=== PATIENT | male | born 1950 | race Caucasian/White ===

== ENCOUNTER → 2017-03-08 | Outpatient (CLI) | payer OTHER ==
[~2017-03-08] MED LIST: IOPAMIDOL (ISOVUE-300) 100 ML BTL ONE
== END ==
LOC: FIMAGING 07:31
PROVIDERS: ATTEND Internal Medicine
DX: R91.1 Solitary pulmonary nodule (principal); I31.3 Pericardial effusion (noninflammatory); I25.10 Atherosclerotic heart disease of native coronary artery without angina pectoris
CPT/HCPCS: Q9967

== ENCOUNTER → 2017-03-21 | Outpatient (CLI) | payer OTHER ==
[~2017-03-21] MED LIST changes: -IOPAMIDOL (ISOVUE-300) 100 ML BTL ONE; +LIDO/EPI 1% **Not for Epidural 20 ML MDV ONE; +LIDO/EPI 1% **for epidural** 30 ML SDV ONE; +LIDOCAINE 1% 300 MG/30 ML SDV ONE
== END ==
LOC: FIMAGING 12:09
PROVIDERS: ATTEND Internal Medicine Hematology & Oncology
PROC: 0JB83ZX Excision of Abdomen Subcutaneous Tissue and Fascia, Percutaneous Approach, Diagnostic (ICD-10-PCS; principal; 2017-03-21)
DX: E65 Localized adiposity (principal)

== ENCOUNTER → 2017-06-03 | Outpatient (CLI) | payer OTHER | LOC: FIMAGING 16:25 | PROVIDERS: ATTEND Internal Medicine Hematology & Oncology | DX: M79.89 Other specified soft tissue disorders (principal) ==

== ENCOUNTER 2018-01-15 21:04 | Observation (INO) | payer OTHER, MEDICARE ==
[2018-01-15] MEDS ORDERED: NS 1,000 ML IV ONE ×2 (21:28→23:52)
--- NOTE | 2018-01-15 21:39 | CPEKG ---
Heart Rate: 47 RR Interval: 1277 P-R Interval: 170 QRSD Interval: 104 QT Interval: 516 QTC Interval: 457 P [place]: -20 QRS [place]: 11 T Wave [place]: 0 EKG Severity - ABNORMAL ECG - EKG Impression: SINUS BRADYCARDIA EKG Impression: MULTIPLE ATRIAL PREMATURE COMPLEXES Electronically Signed By: Steven Jay 15-Jan-2018 22:20:46
--- NOTE | 2018-01-15 21:53 | EDPHY ---
H & P Stated Complaint: ongoing low bp, several falls, vomiting just lighter captain Time Seen by Provider: 01/15/18 21:27 HPI/ROS: CHIEF COMPLAINT: Vasovagal syncope HISTORY OF PRESENT ILLNESS: The patient presents the ED with complaints of vasovagal syncope. The patient has a history of amyloidosis. 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 The patient reportedly has had symptoms of orthostasis since his bone marrow transplant. He reports he is typically able to manage the symptoms at home however over the past day has been unable to get his blood pressure over 80. The patient has sustained multiple falls which have resulted in some superficial abrasions. He denies significant headache, bony pain or additional traumatic complaints. The patient reports he did have an extensive cardiac workup in the past for hypotension. The patient is currently not taking any medications for blood pressure control. He recently stopped taking his Flomax secondary to his hypotension. The patient did have 1 episode of vomiting earlier today. He has been struggling with chronic nausea and vomiting following his bone marrow transplant. REVIEW OF SYSTEMS: A comprehensive 10 point review of systems is otherwise negative aside from elements mentioned in the history of present illness. Source: Patient Exam Limitations: No limitations - Medical/Surgical History Hx Asthma: No Hx Chronic Respiratory Disease: No Hx Diabetes: No Hx Cardiac Disease: Yes Hx Renal Disease: No Hx Cirrhosis: No Hx Alcoholism: No Hx HIV/AIDS: No Hx Splenectomy or Spleen Trauma: No Other PMH: afib, gerd, amyloidosis, bone marrow trans, appendectomy, cyst removed from coccyx - Social History Smoking Status: Never smoked - Physical Exam Exam: General Appearance: Alert, no distress Eyes: Pupils equal and round no pallor or injection ENT, Mouth: Mucous membranes moist Respiratory: There are no retractions, lungs are clear to auscultation Cardiovascular: Regular rate and rhythm Gastrointestinal: Abdomen is soft and nontender, no masses, bowel sounds normal Neurological: 5/5 strength all 4 extremities Skin: Warm and dry, no rashes Musculoskeletal: Neck is supple nontender Extremities: symmetrical, full range of motion Constitutional: Initial Vital Signs Temperature (C) 37 C 01/15/18 21:17 Heart Rate 54 L 01/15/18 21:17 Respiratory Rate 16 01/15/18 21:17 Blood Pressure 82/46 L 01/15/18 21:17 O2 Sat (%) 97 01/15/18 21:17 O2 Delivery Mode Room Air Allergies/Adverse Reactions: No Known Allergies Allergy (Unverified 01/15/18 21:23) Home Medications: Medication Instructions Recorded Acyclovir 01/15/18 Amiodarone HCl 01/15/18 Eliquis 01/15/18 Gabapentin 01/15/18 Granisetron 01/15/18 Lorazepam 01/15/18 Midodrine HCl 01/15/18 Potassium Chloride 01/15/18 Protonix 01/15/18 oxyCODONE CR 01/15/18 Medical Decision Making - Diagnostics EKG Interpretation: EKG: Complete interpretation has been separately recorded in the [facility] archive. Summary impression: Sinus bradycardia, rate 47, multiple PACs Imaging Results: Imaging Impressions Chest X-Ray 01/15/18 22:05 Impression: 1. Impending/borderline CHF. 2. Difficult to exclude left lower lobe infiltrate. A routine PA and lateral chest would be helpful. Procedures: Procedure: Limited transthoracic echocardiogram. A limited transthoracic echocardiogram was performed and interpreted by myself for hypotension. Limited transthoracic echocardiogram: The pericardium was visualized and found to be negative for pericardial fluid. Cardiac activity was present. The study was negative for pericardial effusion. ED Course/Re-evaluation: The patient was placed on a campus monitor. He had an IV established. He received 2 L of normal saline. The patient has sinus bradycardia. He has associated hypotension. He has no fever or significant traumatic complaints. The patient has no evidence of critical anemia. He is not on rate control agents. The patient will be admitted to the hospital for observation. Consultation was made with the hospitalist service at 10:00 p.m.. The patient will be admitted to a monitored bed this evening. Bedside ED ultrasound demonstrates no evidence of a pericardial effusion. Differential Diagnosis: Differential diagnosis considered includes critical anemia, arrhythmia, metabolic abnormality, cardiomyopathy - Data Points Laboratory Results: Laboratory Results 01/15/18 21:40 01/15/18 21:40 01/15/18 01/15/18 21:40 21:40 WBC 7.62 10^3/uL 10^3/uL (3.80-9.50) RBC 3.25 10^6/uL L 10^6/uL (4.40-6.38) Hgb 9.6 g/dL L g/dL (13.7-17.5) Hct 29.1 % L % (40.0-51.0) MCV 89.5 fL fL (81.5-99.8) MCH 29.5 pg pg (27.9-34.1) MCHC 33.0 g/dL g/dL (32.4-36.7) RDW 23.0 % H % (11.5-15.2) Plt Count 109 10^3/uL L 10^3/uL (150-400) MPV 10.6 fL fL (8.7-11.7) Neut % (Auto) 69.7 % % (39.3-74.2) Lymph % (Auto) 14.6 % L % (15.0-45.0) [place] % (Auto) 7.6 % % (4.5-13.0) Eos % (Auto) 7.0 % % (0.6-7.6) Baso % (Auto) 0.4 % % (0.3-1.7) Nucleat RBC Rel Count 0.0 % % (0.0-0.2) Absolute Neuts (auto) 5.32 10^3/uL 10^3/uL (1.70-6.50) Absolute Lymphs (auto) 1.11 10^3/uL 10^3/uL (1.00-3.00) Absolute Monos (auto) 0.58 10^3/uL 10^3/uL (0.30-0.80) Absolute Eos (auto) 0.53 10^3/uL H 10^3/uL (0.03-0.40) Absolute Basos (auto) 0.03 10^3/uL 10^3/uL (0.02-0.10) Absolute Nucleated RBC 0.00 10^3/uL 10^3/uL (0-0.01) Immature Gran % 0.7 % % (0.0-1.1) Immature Gran # 0.05 10^3/uL 10^3/uL (0.00-0.10) Platelet Estimate Pending Sodium 132 mEq/L L mEq/L (135-145) Potassium 4.6 mEq/L mEq/L (3.5-5.2) Chloride 101 mEq/L mEq/L (97-110) Carbon Dioxide 28 mEq/l mEq/l (22-31) Anion Gap 3 mEq/L L mEq/L (8-16) BUN 19 mg/dL mg/dL (7-23) Creatinine 1.5 mg/dL H mg/dL (0.7-1.3) Estimated GFR 47 Glucose 94 mg/dL mg/dL (70-100) Calcium 8.3 mg/dL L mg/dL (8.5-10.4) Medications Given: Discontinued Medications Sodium Chloride (Ns) 1,000 mls @ 0 mls/hr IV EDNOW ONE; Wide Open PRN Reason: Protocol Stop: 01/15/18 21:29 Last Admin: 01/15/18 21:40 Dose: 1,000 mls Departure - Departure Disposition: [facility] Inpatient Acute Clinical Impression: Vasovagal episode, Bradycardia Condition: Fair
[2018-01-15 21:57] LABS: PLATELET COUNT 109 10^3/uL (150-400)
[2018-01-15] MEDS ORDERED: ACETAMINOPHEN 325 MG TAB PO PRN (22:29)
[2018-01-15] MEDS ORDERED: HYDROCODONE/APAP 5/325 TAB PO PRN (22:29)
[2018-01-15] MEDS ORDERED: ONDANSETRON 4 MG/2 ML VIAL IVP PRN (22:29)
[2018-01-15] MEDS ORDERED: NS 1,000 ML IV SCH (22:30)
--- NOTE | 2018-01-16 04:26 | PDGENHP ---
History and Physical - Chief Complaint Syncope - History of Present Illness Source- patient provides history and appears reliable. His is at bedside supplements details. HPI - this is a very pleasant 67-year-old gentleman with past medical history significant for sarcoid who recently underwent a bone marrow transplant on approximately [address] [facility]. Patient reports that since that time he has had underlying nausea which discussed recently has improved in the last few days. Patient reports that he has been able to tolerate oral hydration but he thinks he may have fallen behind on intake in the 2nd half the day. He noted that his urine was kind of dark. Patient was measuring his blood pressure at home but was unable to get them above 80s systolic. Patient is taking mid to drain three times daily as he has had trouble with blood pressure since his transplant. Patient does have history of vasovagal syncope on previously on where he will full and have lost consciousness just for few seconds. Patient reports some intermittent rhinorrhea with clear drainage but no fevers or chills. Patient with the lower extremity edema which patient reports to be "the new normal." At any calf tenderness. No shortness of breath, no cough, no chest pain. History Information - Allergies/Home Medication List Allergies/Adverse Reactions: No Known Allergies Allergy (Unverified 01/15/18 21:23) Home Medications: Acyclovir 01/15/18 [Last Taken Unknown] Amiodarone HCl 01/15/18 [Last Taken Unknown] Eliquis 01/15/18 [Last Taken Unknown] Gabapentin 01/15/18 [Last Taken Unknown] Granisetron 01/15/18 [Last Taken Unknown] Lorazepam 01/15/18 [Last Taken Unknown] Midodrine HCl 01/15/18 [Last Taken Unknown] Potassium Chloride 01/15/18 [Last Taken Unknown] Protonix 01/15/18 [Last Taken Unknown] oxyCODONE CR 01/15/18 [Last Taken Unknown] I have personally reviewed and updated: family history, medical history, social history, surgical history - Past Medical History Additional medical history: Sarcoid status post bone marrow transplant, chronic anticoagulation with Eliquis for history of paroxysmal atrial fibrillation, BPH. Patient without any previous history of DVT - Surgical History Additional surgical history: Bone marrow transplant, appendectomy, cyst resection on his coccyx - Family History Additional family history: Mother with history of Parkinson's - Social History Smoking Status: Never smoked Alcohol Use: None Drug Use: None Additional social history: Patient is lives with his . Cor status- full Review of Systems Review of Systems: ROS: 10pt was reviewed & negative except for what was stated in HPI & below Constitutional: Reports: no symptoms. Denies: chills, fever EENMT: Reports: nose congestion (Intermittent rhinorrhea clear), other. Denies : double vision, sore throat Cardiac: Reports: edema (Baseline), lightheadedness. Denies: chest pain, palpitations Respiratory: Denies: cough, shortness of breath, wheezing Gastrointestinal: Denies: vomitting, abdominal pain, diarrhea, nausea Genitourinary: Denies: dysuria, hematuria Muscolosketal: Reports: no symptoms. Denies: joint pain, muscle pain Skin: Reports: no symptoms Neurological: Reports: no symptoms. Denies: numbness, tingling, weakness Hematologic/Lymphatic: Reports: easy bruising Physical Exam Physical Exam: Selected Entries 01/15/18 01/15/18 21:17 23:56 Blood Pressure Automatic Method Heart Rate 54 L 56 L Respiratory 16 16 Rate O2 Sat (%) 97 96 Temperature (C) 37 C Blood Pressure 82/46 L 83/55 L Mean Arterial 58 L 64 Pressure (MAP) O2 Delivery Room Air Room Air Mode Temperature Oral Source Constitutional: no apparent distress, chronically ill appearing Eyes: PERRL, anicteric sclera, EOMI, pale conjunctiva, scleral injection Ears, Nose, Mouth, Throat: moist mucous membranes, No no oral mucosal ulcers, No poor dentition, No hard of hearing Cardiovascular: regular rate and rhythym, systolic murmur, pulses symmetric bilaterally, bradycardia Peripheral Pulses: 2+: dorsalis-pedis (R), dorsalis-pedis (L) Respiratory: no respiratory distress, no rales or rhonchi, clear to auscultation Gastrointestinal: normoactive bowel sounds, soft, non-tender abdomen, no palpable masses, No distension Genitourinary: no bladder tenderness, No tran in urethra Skin: warm, no rashes or abrasions, other (Pallor), No erythema Musculoskeletal: generalized weakness, No pain with ROM Neurologic: AAOx3, sensation intact bilaterally, CN II-XII Intact (Grossly nonfocal), No facial droop Psychiatric: interacting appropriately, not anxious, not encephalopathic, thought process linear, No poor insight, No poor judgement, No poor memory Lab Data & Imaging Review 01/16/18 04:02 01/16/18 04:02 WBC 7.62 10^3/uL (3.80-9.50) 01/15/18 21:40 RBC 3.25 10^6/uL (4.40-6.38) L 01/15/18 21:40 Hgb 9.6 g/dL (13.7-17.5) L 01/15/18 21:40 Hct 29.1 % (40.0-51.0) L 01/15/18 21:40 MCV 89.5 fL (81.5-99.8) 01/15/18 21:40 MCH 29.5 pg (27.9-34.1) 01/15/18 21:40 MCHC 33.0 g/dL (32.4-36.7) 01/15/18 21:40 RDW 23.0 % (11.5-15.2) H 01/15/18 21:40 Plt Count 109 10^3/uL (150-400) L 01/15/18 21:40 MPV 10.6 fL (8.7-11.7) 01/15/18 21:40 Neut % (Auto) 69.7 % (39.3-74.2) 01/15/18 21:40 Lymph % (Auto) 14.6 % (15.0-45.0) L 01/15/18 21:40 [place] % (Auto) 7.6 % (4.5-13.0) 01/15/18 21:40 Eos % (Auto) 7.0 % (0.6-7.6) 01/15/18 21:40 Baso % (Auto) 0.4 % (0.3-1.7) 01/15/18 21:40 Nucleat RBC Rel Count 0.0 % (0.0-0.2) 01/15/18 21:40 Absolute Neuts (auto) 5.32 10^3/uL (1.70-6.50) 01/15/18 21:40 Absolute Lymphs (auto) 1.11 10^3/uL (1.00-3.00) 01/15/18 21:40 Absolute Monos (auto) 0.58 10^3/uL (0.30-0.80) 01/15/18 21:40 Absolute Eos (auto) 0.53 10^3/uL (0.03-0.40) H 01/15/18 21:40 Absolute Basos (auto) 0.03 10^3/uL (0.02-0.10) 01/15/18 21:40 Absolute Nucleated RBC 0.00 10^3/uL (0-0.01) 01/15/18 21:40 Immature Gran % 0.7 % (0.0-1.1) 01/15/18 21:40 Immature Gran # 0.05 10^3/uL (0.00-0.10) 01/15/18 21:40 Platelet Estimate DECREASED (ADEQ) L 01/15/18 21:40 Microcytic Cells 3+ H 01/15/18 21:40 Stomatocytes 1+ H 01/15/18 21:40 Elliptocytes 1+ H 01/15/18 21:40 Sodium 132 mEq/L (135-145) L 01/15/18 21:40 Potassium 4.6 mEq/L (3.5-5.2) 01/15/18 21:40 Chloride 101 mEq/L (97-110) 01/15/18 21:40 Carbon Dioxide 28 mEq/l (22-31) 01/15/18 21:40 Anion Gap 3 mEq/L (8-16) L 01/15/18 21:40 BUN 19 mg/dL (7-23) 01/15/18 21:40 Creatinine 1.5 mg/dL (0.7-1.3) H 01/15/18 21:40 Estimated GFR 47 01/15/18 21:40 Glucose 94 mg/dL (70-100) 01/15/18 21:40 Calcium 8.3 mg/dL (8.5-10.4) L 01/15/18 21:40 Imaging Review: Portable Chest, 22:14 History: hypotension, bone marrow transplant x 45 days Comparison: None Findings: The heart is enlarged. The pulmonary vascularity is plethoric. The costophrenic gutters remain sharp. It is difficult to exclude some patchy left lower lobe retrocardiac consolidation. There is no pulmonary edema. Impression: 1. Impending/borderline CHF. 2. Difficult to exclude left lower lobe infiltrate. A routine PA and lateral chest would be helpful. Visualized and Interpreted Chest x-ray results: Yes EKG additional interpertation: Sinus bradycardia in the 50s. PACs. No acute ST changes. QTC 457. Assessment & Plan Assessment: Pleasant 67-year-old gentleman with history of sarcoid status post Um bone marrow transplant 45 days ago presents emergency department with complaints of a syncopal episode Syncope - patient reports longstanding history of vasovagal syncope. He states that he has been able to tolerate oral hydration but later in the day yesterday he on was noting that his urine is a little darker and he did feel dry. Patient additionally has been having some baseline nausea without vomiting on since his bone marrow transplant. Patient's blood pressures have been on slightly lower than normal on in systolic in the 80s at home despite TID dosing of midodrine. Patient has been responsive to IV fluid hydration which will continue aggressively overnight. Will also check electrolytes to ensure there is no derangements concerning for renal losses. Review of patient's home medications is not significantly impressive for cause of hypotension. Will also try to obtain records from [facility] as patient reports that he has had several echocardiograms while undergoing his treatment for bone marrow transplant. Will also check some orthostatic blood pressures after patient has received additional IV fluids in the morning. Bradycardia (Acute) - patient reports is baseline heart rate is typically in the 70s. Heart rate has declined in a as low as 50s without significant symptomatology while at rest however. Will hold off on patient's some amiodarone at this time is not on any beta blockers. Will obtain echocardiogram. Cardiology consultation in the morning as per day team. hypotension - see above. Responsive to IV fluids will continue. Continue midodrine three times daily. Acute kidney injury-likely pre renal in nature given patient's of volume deficit and decreased renal perfusion. Continue with the replacement and monitor renal function. Previous renal panel outpatient was less than 1. Anemia - likely related to chronic disease in setting of recent rib bone marrow transplant. Patient without any evidence of active bleeding at this time. Will monitor H&H. Thrombocytopenia - in setting of recent bone marrow transplant as above. Continue monitor Hypoalbuminemia - related to patient's chronic illnesses likely contributing to patient's lower extremity edema. Sarcoid - status post bone marrow transplant. Courtesy notification to hematology as per day team. Immuno compromise status - resume patient's home medications Paroxysmal AFib - as above on holding amiodarone this a.m.. Cardiology consult and echocardiogram. Patient currently sinus bradycardia. Murmur - longstanding history of murmur. Echocardiogram pending. BPH - holding Flomax in setting of hypotension. FEN - continue IV fluid hydration. Electrolyte monitoring replacement p.r.n. Diet as tolerated PPX-patient is on Eliquis. Will plan to continue. SCDs. Cor status-full Disposition-patient admitted observation status at this time on PCU for close cardiac monitoring pending further cardiac evaluation and cardiology recommendations.
[2018-01-16 04:51] LABS: PLATELET COUNT 93 10^3/uL (150-400)
--- NOTE | 2018-01-16 08:54 | HOSPPROG ---
Hospitalist Progress Note Assessment/Plan: #Syncope -positive orthostatics -TTE 12/15/17 (personally review VERONIQUE): EF 72%, No WMA, intracavitary gradient 26, moderate TR, RVSP 51mmg Objective: Vital Signs Temp Pulse Resp BP Pulse Ox 36.7 C 73 18 115/64 97 01/16/18 08:06 01/16/18 08:06 01/16/18 08:06 01/16/18 08:06 01/16/18 08:06 Laboratory Results 01/16/18 04:02 01/16/18 04:02 01/15/18 01/16/18 01/17/18 05:59 05:59 05:59 Intake Total 1550 Output Total 1200 Balance 350 ICD10 Worksheet Patient Problems: Problems Problem Status Onset Bradycardia Acute Vasovagal episode Acute
--- NOTE | 2018-01-16 09:35 | CPEKG ---
Heart Rate: 72 RR Interval: 833 P-R Interval: 148 QRSD Interval: 110 QT Interval: 472 QTC Interval: 517 P [place]: 23 QRS [place]: -8 T Wave [place]: 9 EKG Severity - ABNORMAL ECG - EKG Impression: SINUS RHYTHM EKG Impression: NONSPECIFIC INTRAVENTRICULAR CONDUCTION DELAY Electronically Signed By: Dagoberto Rushing 17-Jan-2018 12:24:44
--- NOTE | 2018-01-16 10:35 | ECHO ---
[email or web address] [address] [address] Main: [phone] Fax: Transthoracic Echocardiogram Name: MARLENY VALDOVINOS MR#: [id number] Study Date: 01/16/2018 Study Time: 07:44 AM Date of : 1950 Age: 67 year(s) Height: 188 cm (74 in.) Weight: 95.71 kg (211 lb.) BSA: 2.22 m2 Gender: Male Examination: Echo Indication: Cardiac: syncope, HYPOTENSION, BRADYCARDIA Image Quality: Contrast: Requested by: Ling Calle BP: 65 mmHg/43 mmHg Heart Rate: Rhythm: Indication: Cardiac: syncope, HYPOTENSION, BRADYCARDIA Procedure Staff Mrp Controller: Aurora Green [facility] Reading Physician: Doyle Mohamud MD Requesting Provider: Measurements: Chambers Valvular Assessment AV/MV Valvular Assessment TV/PV Normal Normal Normal Name Value Range Name Value Range Name Value Range Ao Grace (2D): 3.1 cm (1.4 cm-2.6 AV meanP mmHg ( - ) TR Vmax: 3.26 mm/s ( - ) cm) VIRGEN (VTI): 4.2 cm ( - ) TR PGmax: 43 mmHg ( - ) IVSd (2D): 1.8 cm (0.6 cm-1.1 MV E Vmax: 0.83 m/s ( - ) syst. PAP: 48 mmHg ( - ) cm) MV A Vmax: 0.64 m/s ( - ) PV Vmax: 1.22 m/s (0.6 m/s-0.9 LVDd (2D): 4.9 cm (4.2 cm-5.9 MV E/A: 1.30 ( - ) m/s) cm) MV PHT: 0.070 s ( - ) PV PGmax: 6 mmHg ( - ) LVDs (2D): 3.3 cm (2.1 cm-4 cm) MVA (PHT): 3.1 s ( - ) LVPWd (2D): 1.6 cm (0.6 cm-1 cm) LVOTd 2.3 cm 2.3 cm mm LVEF (BP): 63 % (>=55 %) RVDd(2D): 3.5 cm (1.9 cm-3.8 cmmm) Continued Measurements: Chambers Valvular Assessment AV/MV Valvular Assessment TV/PV Name Value Name Value Name Value LADs: 4.4 cm MV DecTime: 232 m/s CVP (est.): 5 mmHg LADs Lon.3 cm MV E' Septal: 0.06 m/s LA Area: 31.8 cm2 MV E/E' Septal: 14.20 LA Volume: 121 ml MV E/E' Lateral: 11.00 LA Volume Index: 54.5 ml/m2 MR ERO: 0.560 cm2 RA Area: 19.9 cm2 MR PISA radius: 11 mm Patient: MARLENY VALDOVINOS Study Date: 01/16/2018 Page 1 of 2 07:44 AM MR Reg. Volume: 69 ml Additional Vessels Name Value Ao Ascendin.7 cm Inferior Vena Cava: 2.1 cm Findings: Left Ventricle: Normal size left ventricle. Severe concentric LV hypertrophy. JANINA present. Normal global systolic LV function. EF is 63 %. No regional wall motion abnormality. Unable to assess diastolic dysfunction. Appears to have LVOT obstruction due to JANINA. Peak gradient 58 mmhg with valsava. Peak gradient of 19 mmhg without valsava. Right Ventricle: Normal size right ventricle. Left Atrium: Left atrial enlargement. Right Atrium: The right atrium is normal in size. Mitral Valve: The mitral valve is normal in appearance and function. Moderate mitral valve regurgitation is present. No mitral stenosis is present. JANINA present. Aortic Valve: The aortic valve is normal in appearance and function. There is no aortic valve regurgitation. No aortic valve stenosis is present. Tricuspid Valve: The tricuspid valve is normal in appearance and function. Mild tricuspid regurgitation is present. The pulmonary artery pressure is mildly increased. Right ventricular systolic pressure measures 48mmHg. Pulmonic Valve: The pulmonic valve is normal in appearance and function. There is no pulmonic regurgitation seen. Aorta: The aorta is normal. Normal size aortic root measuring 3.1 cm. Normal size ascending aorta measuring 3.7 cm. IVC: The IVC is mildly dilated. Pericardium: Small pericardial effusion. No pleural effusion. (No Signature Object) Patient: MARLENY VALDOVINOS Study Date: 01/16/2018 Page 2 of 2 07:44 AM [id number]
[2018-01-16] MEDS ORDERED: GRANISETRON HCL 1 MG PO PRN ×2 (11:50→11:58)
[2018-01-16] MEDS ORDERED: LORazepam 0.5 MG TAB PO PRN (11:50)
[2018-01-16] MEDS ORDERED: oxyCODONE IR 5 MG TAB PO PRN (11:50)
[2018-01-16] MEDS ORDERED: APIXABAN 5 MG TAB PO SCH (12:00)
[2018-01-16] MEDS ORDERED: AMIODARONE HCL 200 MG TAB PO SCH (12:00)
[2018-01-16] MEDS ORDERED: ACYCLOVIR 400 MG TAB PO SCH (12:00)
[2018-01-16] MEDS ORDERED: MIDODRINE HCL 5 MG TAB PO SCH (12:00)
[2018-01-16] MEDS ORDERED: NON-FORMULARY NEW DRUG (Acyclovir [Acyclovir] 800 MG) PO SCH (12:00)
[2018-01-16 12:22] VITALS: BP 131/74
--- NOTE | 2018-01-16 13:23 | PDCARCONS ---
Cardiology Consult Reason for Consult: Syncope and history of pAF Chief Complaint: Syncope Requesting Physician: Hospitalist Team History of Present Illness: Patient is a 67 y/o male with history of sarcoid s/p relatively recent bone marrow transplant (about 45 days ago), with admission for syncope. Paroxysms of atrial fibrillation have also been noted (patient is on Eliquis and amiodarone), with gradual slowing of heart rates being noted. Cardiology consult was requested to determine, what if any further testing/procedures are recommended. Patient has also noted bouts of hypotension with orthostasis (and the aforementioned syncope). Ongoing use of midodrine for pressure support has been well tolerated. In the recent past, issues related to significant lower extremity edema were addressed. It appears as if the patient wavers between lower extremity edema and orthostasis. ECG with both atrial fibrillation (rates controlled) and normal sinus rhythm noted. No cardiovascular complaints of chest pains or pressure. No PND or orthopnea. Some weakness and fatigue have been noted. was present with the patient in the hospital today. Echocardiogram with normal systolic functioning. Mildly thickened prince were noted (posterior and septal wall) with a gradient noted. There was mild speckling noted to the septal wall. Trivial pericardial effusion was noted. Twelve point review of systems, outside of that which was mentioned above, was unremarkable. History Information - Allergies/Home Medication List Allergies/Adverse Reactions: No Known Allergies Allergy (Unverified 01/15/18 21:23) Home Medications: Acyclovir 800 mg PO BID 01/15/18 [Last Taken 01/15/18 21:00] Amiodarone HCl [Pacerone (*)] 200 mg PO BID 01/15/18 [Last Taken 01/15/18 21:00] Apixaban [Eliquis] 5 mg PO BID 01/15/18 [Last Taken 01/15/18 21:00] Gabapentin [Neurontin 300 MG (*)] 300 mg PO BID 01/15/18 [Last Taken 01/15/18 21 :00] Granisetron HCl 1 mg PO BID PRN 01/15/18 [Last Taken 1 Day Ago ~01/15/18] LORazepam [Ativan (*)] 0.5 mg PO Q4HRS PRN 01/15/18 [Last Taken Unknown] Midodrine HCl 5 mg PO TID 01/15/18 [Last Taken 01/15/18 21:00] Pantoprazole Sodium [Protonix 40mg (*)] 40 mg PO DAILY 01/15/18 [Last Taken ] oxyCODONE IR [Oxycodone Ir (*)] 5 mg PO HS PRN 01/15/18 [Last Taken Unknown] I have personally reviewed and updated: family history, medical history, social history, surgical history Past Medical History: - Past Medical History atrial fibrillation, DVT Additional medical history: sarcoid - Surgical History Reports: no pertinent surgical hx - Family History Positive for: non-pertinent - Social History Smoking Status: Never smoked Alcohol Use: None Drug Use: None Cardiac History - Cardiac History Cardiac Risk Factors: age > 65, male Timing/Duration: Days Severity: moderate Severity Scale: 5 Activities at Onset: none Associated Symptoms: syncope, weakness Physical Exam Physical Exam: Temp Pulse Resp BP Pulse Ox 36.7 C 79 18 131/74 H 92 01/16/18 11:35 01/16/18 12:21 01/16/18 11:35 01/16/18 12:21 01/16/18 11:35 O2 (L/minute) 1 Constitutional: no apparent distress, appears nourished, not in pain Eyes: PERRL Ears, Nose, Mouth, Throat: moist mucous membranes Cardiovascular: systolic murmur, irregularly irregular, No diastolic murmur, No JVD Peripheral Pulses: 2+: dorsalis-pedis (R), dorsalis-pedis (L) Respiratory: no respiratory distress, no rales or rhonchi, clear to auscultation Gastrointestinal: normoactive bowel sounds Skin: warm, normal color, other (trace edema) Musculoskeletal: full muscle strength Neurologic: AAOx3, sensation intact bilaterally, CN II-XII Intact Psychiatric: interacting appropriately Lab and Imaging 01/16/18 04:02 01/16/18 04:02 WBC 5.97 10^3/uL (3.80-9.50) 01/16/18 04:02 RBC 2.96 10^6/uL (4.40-6.38) L 01/16/18 04:02 Hgb 8.5 g/dL (13.7-17.5) L 01/16/18 04:02 Hct 26.7 % (40.0-51.0) L 01/16/18 04:02 MCV 90.2 fL (81.5-99.8) 01/16/18 04:02 MCH 28.7 pg (27.9-34.1) 01/16/18 04:02 MCHC 31.8 g/dL (32.4-36.7) L 01/16/18 04:02 RDW 23.0 % (11.5-15.2) H 01/16/18 04:02 Plt Count 93 10^3/uL (150-400) L 01/16/18 04:02 MPV 10.3 fL (8.7-11.7) 01/16/18 04:02 Neut % (Auto) 70.9 % (39.3-74.2) 01/16/18 04:02 Lymph % (Auto) 13.9 % (15.0-45.0) L 01/16/18 04:02 Briscoe % (Auto) 7.5 % (4.5-13.0) 01/16/18 04:02 Eos % (Auto) 6.4 % (0.6-7.6) 01/16/18 04:02 Baso % (Auto) 0.5 % (0.3-1.7) 01/16/18 04:02 Nucleat RBC Rel Count 0.0 % (0.0-0.2) 01/16/18 04:02 Absolute Neuts (auto) 4.23 10^3/uL (1.70-6.50) 01/16/18 04:02 Absolute Lymphs (auto) 0.83 10^3/uL (1.00-3.00) L 01/16/18 04:02 Absolute Monos (auto) 0.45 10^3/uL (0.30-0.80) 01/16/18 04:02 Absolute Eos (auto) 0.38 10^3/uL (0.03-0.40) 01/16/18 04:02 Absolute Basos (auto) 0.03 10^3/uL (0.02-0.10) 01/16/18 04:02 Absolute Nucleated RBC 0.00 10^3/uL (0-0.01) 01/16/18 04:02 Immature Gran % 0.8 % (0.0-1.1) 01/16/18 04:02 Immature Gran # 0.05 10^3/uL (0.00-0.10) 01/16/18 04:02 Platelet Estimate DECREASED (ADEQ) L 01/16/18 04:02 Hypochromasia 2+ H 01/16/18 04:02 Microcytic Cells 1+ H 01/16/18 04:02 Stomatocytes 1+ H 01/15/18 21:40 Elliptocytes 1+ H 01/16/18 04:02 Sodium 137 mEq/L (135-145) 01/16/18 04:02 Potassium 4.5 mEq/L (3.5-5.2) 01/16/18 04:02 Chloride 104 mEq/L (97-110) 01/16/18 04:02 Carbon Dioxide 30 mEq/l (22-31) 01/16/18 04:02 Anion Gap 3 mEq/L (8-16) L 01/16/18 04:02 BUN 18 mg/dL (7-23) 01/16/18 04:02 Creatinine 1.4 mg/dL (0.7-1.3) H 01/16/18 04:02 Estimated GFR 51 01/16/18 04:02 Glucose 82 mg/dL (70-100) 01/16/18 04:02 Calcium 8.1 mg/dL (8.5-10.4) L 01/16/18 04:02 Total Bilirubin 0.3 mg/dL (0.1-1.4) 01/16/18 04:02 AST 16 IU/L (17-59) L 01/16/18 04:02 ALT 37 IU/L (21-72) 01/16/18 04:02 Alkaline Phosphatase 111 IU/L (38-126) 01/16/18 04:02 Total Protein 4.2 g/dL (6.3-8.2) L D 01/16/18 04:02 Albumin 2.0 g/dL (3.5-5.0) L 01/16/18 04:02 Visualized and Interpreted Chest x-ray results: Yes Chest X-ray Interpretation: other (possible small infiltrate) EKG Interpretation: Positive for: other (atrial fibrillation) Echocardiogram: Normal LVEF with severe LVH. Peak gradient through LVOT was 58 mm Hg with valsalva, and 19 mm Hg at rest. Mild LAE, normal RA. Moderate MR. Mild TR. A/P Assessment: Patient is a 67 y/o male with sarcoid s/p recent bone marrow transplant (about 45 days ago), with admission for syncope. Patient has noted several episodes of hypotension and work up has revealed hypovolemia. Atrial fibrillation has been noted (Eliquis and Amiodarone are being taken). Heart rates have slowed in comparison to past. Echocardiogram reveals normal LVEF, mild left atrial dilation, moderate mitral regurgitation (being followed), and LVH (severe) with JANINA and LVOT gradient. Telemetry with normal sinus rhythm. Salvos of atrial fibrillation have been noted (and were noted with this admission). With volume resuscitation, the patient's heart rate/rhythm normalized. There was not profound bradycardia noted, but with history of sarcoid, this needs closer monitoring. Plan: Recommendations for patient to have either a 30 day external heart monitor or an implantable loop recorder to acquire more complete information about the patient rates/rhythms. Would continue therapy on Eliquis for CVA prophylaxis ( noted history of DVT in the past as well). Amiodarone should continue for assistance with rhythm control. Maintain therapy on Midodrine as at present. There had been a request for patient to see cardiology, and Dr. Mary Ann Marmolejo appears to be in the schedule. At present, the patient does not meet requirements for pacer, but with history of sarcoid, and pAF, this may be in the future. Further, more complete rhythm assessment with aforementioned monitors would be of assistance. Further manipulation of medications to assist with the noted hypotension, which at this point appears to be a volume related issue (not bradycardia). Discussion with patient and about these recommendations was undertaken, and outpatient follow up with cardiology is pending.
--- NOTE | 2018-01-16 13:34 | GDS ---
[f rep st] DISCHARGE SUMMARY DISCHARGE DIAGNOSES: 1. Syncope x2. 2. History of paroxysmal atrial fibrillation. 3. Amyloidosis, status post stem cell transplant. 4. Bradycardia. 5. Orthostatic hypotension. 6. Acute kidney injury. 7. Hypovolemic hyponatremia. 8. Anemia. HISTORY OF PRESENT ILLNESS: A 67-year-old male, history of amyloidosis, who underwent bone marrow transplant 45 days ago at [facility] in [place]. Since that time, he has had underlying nausea, but has been able to tolerate oral hydration. He thinks he may not have drank as much as he should have yesterday. He had 2 falls this week, 1 in which he landed on a Gatorade bottle when he hit the floor, leading to a laceration on the left side of his head. He denies any prior palpitations, chest pain. No fevers, chills, or sweats. No cough. HOSPITAL COURSE BY PROBLEM: 1. Syncope: Suspect dehydrated, along with his chronic autonomic dysfunction. Dehydration was likely given elevated creatinine and low sodium. This has improved with hydration. Resumed his midodrine. He was evaluated by Cardiology. EKG shows bradycardia with PACs, possible atrial fibrillation. Recommend 30-day Holter monitoring, which [facility] will arrange. I advised for him to choose a chlorine cell tender. He was recommended Dr. Marmolejo, whom I think he wants to see. If not, I recommended [facility]. Echo showed a normal EF of 63%. No regional wall motion abnormality. Appears to have LVOT obstruction due to JANINA. Peak gradient 58 mmHg with Valsalva. 2. Amyloidosis: He is followed by Dr. Diaz. Recent stem cell transplant. Continue with home medications. 3. Chronic orthosis/autonomic dysfunction. Continue midodrine. Recommend at least 2 L of fluid a day. Also advised him to take his time from sitting to standing and to stand at least a minute prior to ambulating in case he feels as if he is going to fall. 4. Acute kidney injury on chronic kidney disease. Baseline creatinine is 1.1 to 1.2. It was elevated at 1.5 here. This improved with IV fluids. 5. Hypovolemic hyponatremia: Again, this resolved with fluids. 6. Normocytic anemia. 7. Denies any bleeding. 8. Patient is stable. DISPOSITION: Patient is stable for discharge. MEDICATIONS: No new medications. FOLLOWUP: 1. A 30-day Holter monitor to be arranged by [facility]. 2. Establish care with a chlorine cell tender. 3. Dr. Diaz. Time spent on DC >30 min coordinating discharge and FU with Cardiology /[id number]/MODL MTDFarida
--- NOTE | 2018-01-16 13:46 | ASDISCHSUM ---
Discharge Information Plan Status:Home with No Needs Medically Cleared to Leave:01/16/2018 Discharge Date:01/16/2018 CM D/C Disposition:Home, Routine, Self-Care ADT D/C Disposition: Projected Discharge Date:01/16/2018 Transportation at D/C:Family Discharge Delay Reason: Follow-Up Date:01/16/2018 Discharge Slot: Final Diagnosis: Placement Information Patient Contact Information Contact Name:GAURANG Relationship: Address:[address] [place] [address] Home Phone: City:[place] Alternate Phone: [facility]/Zip Code:[place] [address] Email: Financial Information Financial Class:Medicare Primary Plan Desc:MEDICARE OUTPATIENT Primary Plan Number:[id number] Secondary Plan Desc:[employer] SUPPLEMENT Secondary Plan Number:[id number] Assessment Information LACE LACE Length of stay for Answers: Less than 1 day current admission Acuity / Level of Answers: No Care: Did the patient have an inpatient admission? Comorbidities - select Answers: History of falls all that apply Other Notes: AFIB, GERD # of Emergency department Answers: 1-2 visits in the last 6 months Score: 5 Date Signed: 01/16/2018 01:45 PM Electronically Signed By:Chelsea Villanueva RN Case Management Discharge Plan Note Case Management Discharge Discharge Order Complete? Answers: Yes Patient to Obtain Answers: Independently Medications Transportation Arranged Answers: Family/Friends Discharge Comments Notes: 01/16/2018 Case Management Note Pt was discussed during rounds this morning. There were no case management d/c needs identified. Pt was admitted for syncope and bradycardia. Pt d/c independently with follow up as directed. Date Signed: 01/16/2018 01:44 PM Electronically Signed By:Chelsea Villanueva RN Intervention Information Intervention Type:*ODOM-Signed Date of Service:01/16/2018 09:38 AM Patient Type:Observation Staff Member:Carmina Arguello Hours: Discipline: Severity: Comment:
[2018-01-16] MEDS ORDERED: GABAPENTIN 300 MG CAP PO SCH (21:00)
[2018-01-17] MEDS ORDERED: PANTOPRAZOLE SODIUM 40 MG TAB PO SCH (09:00)
== END 2018-01-16 15:55 | disposition home or self-care (01) ==
LOC: F2W 01-16 00:06
PROVIDERS: ADMIT Family Medicine; ATTEND Family Medicine
DX: I95.1 Orthostatic hypotension (principal); E86.0 Dehydration; N17.9 Acute kidney failure, unspecified; I48.0 Paroxysmal atrial fibrillation; R00.1 Bradycardia, unspecified; E87.1 Hypo-osmolality and hyponatremia; E86.1 Hypovolemia; E85.9 Amyloidosis, unspecified; Z94.84 Stem cells transplant status; D64.9 Anemia, unspecified; J84.9 Interstitial pulmonary disease, unspecified; I51.7 Cardiomegaly; Z79.01 Long term (current) use of anticoagulants
CPT/HCPCS: 71045; 71046; 93005; 93306; G0378

== ENCOUNTER → 2018-04-07 | Outpatient (CLI) | payer OTHER, MEDICARE ==
[~2018-04-07] MED LIST changes: +GADOBUTROL 10 ML VIAL IVP ONE; -LIDO/EPI 1% **Not for Epidural 20 ML MDV ONE; -LIDO/EPI 1% **for epidural** 30 ML SDV ONE; -LIDOCAINE 1% 300 MG/30 ML SDV ONE
== END ==
LOC: FIMAGING 13:17
PROVIDERS: ATTEND Internal Medicine Cardiovascular Disease
DX: E85.9 Amyloidosis, unspecified (principal); I42.1 Obstructive hypertrophic cardiomyopathy; I51.7 Cardiomegaly; I31.3 Pericardial effusion (noninflammatory)
CPT/HCPCS: 75561; A9585

== ENCOUNTER → 2018-07-17 | Outpatient (CLI) | payer OTHER, MEDICARE | LOC: BHLMT 09:15 | PROVIDERS: ATTEND Internal Medicine Cardiovascular Disease | DX: I48.0 Paroxysmal atrial fibrillation (principal); I10 Essential (primary) hypertension; E78.5 Hyperlipidemia, unspecified; E85.3 Secondary systemic amyloidosis; Z79.899 Other long term (current) drug therapy | CPT/HCPCS: 93005-PO ==